=== PATIENT | female | born 1970 | race Caucasian/White ===

== ENCOUNTER → 2017-04-28 | Outpatient (CLI) | payer BC ==
[~2017-04-28] MED LIST: IBUP600T44 PO; LRT5 PO
--- NOTE | 2017-05-02 12:38 | MAMMOGRAPHY REPORT ---
BILATERAL DIGITAL SCREENING MAMMOGRAM TOMOSYNTHESIS WITH CAD: 04/28/2017 CLINICAL HISTORY: Routine screening. Patient has no complaints. TECHNIQUE: Breast tomosynthesis in addition to standard 2D mammography was performed. Current study was also evaluated with a Computer Aided Detection (CAD) system. COMPARISON: Comparison is made to exams dated: 06/11/2013 mammogram, 06/06/2012 mammogram, 09/22/2010 mammogram, 04/13/2010 mammogram, 09/21/2009 mammogram, and 01/26/2005 mammogram - [facility]. BREAST COMPOSITION: The tissue of both breasts is heterogeneously dense, which may obscure small mas ses. FINDINGS: No suspicious masses, calcifications, or areas of architectural distortion are noted in ei ther breast. There has been no significant interval change compared to prior exams. Scattered bilate ral benign-appearing calcifications are again noted. Numerous round/oval circumscribed masses are no josé miguel bilaterally, best seen on the tomosynthesis images, which are considered benign given the multipl icity and bilaterality and likely represent cysts and/or fibroadenomas. IMPRESSION: ACR BI-RADS CATEGORY 2: BENIGN There is no mammographic evidence of malignancy. A 1 year screening mammogram is recommended. The pa tient will receive written notification of the results. Approximately 10% of breast cancers are not detected with mammography. A negative mammographic report should not delay biopsy if a clinically suggestive mass is present. Alyse Thao M.D. /:04/28/2017 15:54:28 [employer] Manager: Maria E WHITE(Tiffany)(Trung)(NAN), [facility] letter sent: Normal 1/2 BI-RADS Code: ACR BI-RADS Category 2: Benign
== END | disposition home or self-care (01) ==
LOC: C.MAMM 15:11
PROVIDERS: ATTEND Obstetrics & Gynecology
DX: Z12.31 Encounter for screening mammogram for malignant neoplasm of breast (principal)

== ENCOUNTER 2017-06-09 16:54 | Emergency (ER) | payer OTHER, BC ==
[~2017-06-09] VITALS: Ht 160 cm; Wt 116.1 kg
[2017-06-09 16:58] VITALS: BP 117/74; PULSE 86; TEMP 37; O2SAT 98; Ht 160 cm; Wt 116.1 kg
[2017-06-09] MEDS ORDERED: IBUPROFEN 600 MG TAB PO STA (17:22)
[2017-06-09] MEDS ORDERED: XYLOCAINE 1%/SOD BICARB 20 ML VIAL INFIL ONE (17:30)
--- NOTE | 2017-06-09 17:45 | DIAGNOSTIC IMAGING REPORT ---
R FINGER(S) MIN 2 VIEWS ROUTINE CLINICAL HISTORY: 46 years-old Female presenting with RIGHT 2ND, EVAL FX. TECHNIQUE: Frontal, oblique, and lateral views of the right second finger were obtained. COMPARISON: None. FINDINGS: No acute fracture or malalignment. No significant degenerative change. No radiographic soft tissue abnormality. IMPRESSION: No acute osseous injury of the right second finger. Electronically signed by: Pawan Jarrell M.D. 06/09/2017 5:44 PM Dictated Date/Time: 06/09/2017 5:43 PM
--- NOTE | 2017-06-09 18:28 | EMERGENCY ROOM VISIT NOTE ---
ED Visit Note First contact with patient: 17:12 CHIEF COMPLAINT: Right second finger laceration at work this afternoon HISTORY OF PRESENT ILLNESS: Patient is a [id number] 46-year-old white female who presents emergency department for evaluation of a laceration to the tip of her right second finger. She accidentally pinched the tip of the finger in the hinge of a room dividing wall at work this afternoon. Bleeding was controlled with pressure. She was seen at [facility] where her tetanus was updated. They were not comfortable managing the wound. Patient notes a dull, throbbing 5/10 pain. Denies weakness or numbness of the finger. REVIEW OF SYSTEMS: Review of systems as per HPI. All other systems reviewed were negative. At least 6 systems reviewed. PMH: Electronic medical records are reviewed and summarized as above/below. See Problem List. Tetanus was administered at [facility] this afternoon. SOCIAL HISTORY: Patient lives at home with her and children. Nonsmoker. PHYSICAL EXAM: Vital Signs: Reviewed Nurse's notes. Patient has 2 lacerations on the finger pad of the right second finger. She has a 1.5 cm C-shaped flap laceration, then there is a second, 0.5 cm linear laceration through the flap. The edges gape apart with traction. There is no foreign material in the wound and it looks clean. There is no bleeding. No deep structures such as tendons or nerves are seen in the base of the wound. Flexion of the finger is full and strong at the DIP and the PIP. She does not have any pain over the DIP joint. There is very slight bruising to the nailbed, but no subungual hematoma. EMERGENCY DEPARTMENT COURSE: X-ray of the finger was obtained, and there was no evidence for acute fracture. Using sterile technique, saline and Betadine cleansing, and 1% lidocaine anesthesia, the lacerations were repaired with a total of 12, 5-0 nylon sutures. Wound care measures were discussed with the patient. She'll follow-up with occupational health for suture removal. There is no evidence for fracture. She does not have a subungual hematoma, nor nail injury or involvement. There is no fracture to indicate open fracture. No visible exam findings are indicative of nerve or tendinous injury. Medication reconciliation: I attest that I have personally reviewed the patient' s current medication list. Blood pressure screening : Patient was found to have normal blood pressure on screening and does not require follow-up. R FINGER(S) MIN 2 VIEWS ROUTINE CLINICAL HISTORY: 46 years-old Female presenting with RIGHT 2ND, EVAL FX. TECHNIQUE: Frontal, oblique, and lateral views of the right second finger were obtained. COMPARISON: None. FINDINGS: No acute fracture or malalignment. No significant degenerative change. No radiographic soft tissue abnormality. IMPRESSION: No acute osseous injury of the right second finger. Problem List Surgical Problems: (1) H/O section Status: Resolved Current/Historical Medications No Active Prescriptions or Reported Meds Allergies Coded Allergies: Scallop (Verified Allergy, Unknown, Unknown, 06/09/17) Vital Signs Date Time Temp Pulse Resp B/P (MAP) Pulse Ox O2 Delivery O2 Flow Rate FiO2 06/09/17 16:58 37.0 86 18 117/74 98 Room Air Medications Administered Medications (Trade) Dose Ordered Sig/Danica Route Start Time Stop Time Status Last Admin Dose Admin Lidocaine HCl (Buffered Lidocaine 1% Inj) 20 ml ONE ONCE INFIL 06/09/17 17:30 06/09/17 17:31 DC 06/09/17 17:41 20 ML Ibuprofen (Motrin Tab) 600 mg NOW STAT PO 06/09/17 17:22 06/09/17 17:24 DC 06/09/17 17:40 600 MG Departure Information Impression Primary Impression: Laceration of finger Additional Impression: Work related injury Prescriptions No Active Prescriptions or Reported Meds Referrals No Doctor, Assigned (PCP) Patient Instructions My [facility] Additional Instructions Keep wound clean and dry. Do not allow any crusting or dried blood to accumulate on sutures. If this occurs, use a 1:1 solution of hydrogen peroxide/ water on a Q-tip to clean the wound. Use an antibiotic ointment for 3-4 days, then let wound dry. Suture removal in 10-12 days. Return sooner for any signs of infection (increasing redness, swelling, drainage). Ice and elevate for swelling and pain. Ibuprofen 600 mg and Tylenol 1000 mg every 6 hrs for pain. Problem Qualifiers
== END 2017-06-09 19:01 | disposition home or self-care (01) ==
LOC: C.EDB 16:56 → C.EDD 19:01
DX: S61.210A Laceration without foreign body of right index finger without damage to nail, initial encounter (principal); W23.0XXA Caught, crushed, jammed, or pinched between moving objects, initial encounter; Y99.0 Civilian activity done for income or pay

== ENCOUNTER 2025-01-13 17:10 | Observation (INO) ==
--- NOTE | 2025-01-13 17:38 | CT Scan Report ---
Clinical History: Possible stroke. Technique: Axial computed tomography images were obtained of the brain from the vertex to the skull base without intravenous contrast. Comparison is made to the prior CT dated 10/08/2021 Findings: There is no sign of intracranial hemorrhage. There is normal freeman-white matter differentiation with no sign of acute or old infarction. No midline shift or other form of herniation is identified. There is no hydrocephalus. No obvious mass lesion is seen on this noncontrast examination. The visualized portions of the orbits and paranasal sinuses appear unremarkable. The mastoid air cells appear clear Impression: Unremarkable noncontrast CT of the brain These findings were discussed with Dr. Thomas at 5:37 PM on 01/13/2025 Electronically signed by Simon Gibson 01-13-2025 5:37 PM
--- NOTE | 2025-01-13 17:49 | XRay Report ---
INDICATION: Chest pain. TECHNIQUE: Frontal radiograph of the chest. COMPARISON: None. FINDINGS: Cardiomegaly. Mild pulmonary vascular congestion. No infiltrate, pleural effusion or pneumothorax. No acute osseous abnormality evident. IMPRESSION: Mild pulmonary vascular congestion. Electronically signed by Lobo Julian 01-13-2025 5:47 PM
[2025-01-13 17:50] LABS: iSTAT Creatinine 1.3 mg/dl (0.6-1.3); iSTAT Hemoglobin 14.6 g/dl (12.0-16.0); iSTAT Ionized Calcium 1.2 mmol/l (1.12-1.32)
[2025-01-13 17:52] LABS: Hemoglobin 14.5 g/dl (12.0-16.0); Mean Corpuscular Hemoglobin 30.5 pg (25.0-34.0); Mean Corpuscular Hgb Conc 33.7 g/dL (32.0-36.0); Mean Corpuscular Volume 90.5 fL (80.0-100.0); Mean Platelet Volume 10.9 fL (9.4-12.4); Platelet Count 230 K/uL (130-400); RDW Coefficient of Variation 13.8 % (11.5-14.5); RDW Standard Deviation 45.7 fL (36.4-46.3); Red Blood Count 4.75 M/uL (4.20-5.40); White Blood Count 7.27 K/ul (4.8-10.8)
[2025-01-13 17:59] LABS: INR 0.9 (0.9-1.1); Partial Thromboplastin Ratio 0.9; Partial Thromboplastin Time 25 Seconds (21-31); Prothrombin Time 9.8 Seconds (9.0-12.0)
[2025-01-13] MEDS: OPTIRAY 320 125ml IV ONE (18:03)
[2025-01-13 18:09] LABS: Alanine Aminotransferase 15 U/L (7-52); Albumin Globulin Ratio 1.4 (0.9-2); Albumin Level 4.3 gm/dl (3.4-5.0); Alkaline Phosphatase 78 U/L (34-104); Anion Gap 7 (3-11); Aspartate Aminotransferase 18 U/L (13-39); BUN Creatinine Ratio 18.2 (10-20); Bilirubin,Total 0.4 mg/dl (0.2-1.0); Blood Urea Nitrogen 22 mg/dl (6-23); Calcium 9.9 mg/dl (8.6-10.3); Carbon Dioxide 30 mmol/L (21-32); Chloride 103 mmol/L (98-107); Creatinine Clr Calc Pharmacy 65.3 ml/min; Glucose 103 mg/dl (70-99(Fasting)); Magnesium 2.1 mg/dl (1.7-2.4); Potassium 3.9 mmol/L (3.5-5.1); Sodium 140 mmol/L (136-145); Total Protein 7.3 gm/dl (6.0-8.3)
--- NOTE | 2025-01-13 18:13 | CT Scan Report ---
Technique: Axial computed tomography images were obtained of the brain after the administration of intravenous contrast according to the CT angiogram protocol Findings: There is mild plaque within the cavernous and supraclinoid segments of the internal carotid arteries bilaterally, without stenosis No definite stenosis or aneurysm is seen of the anterior, middle, or posterior cerebral artery circulations. The visualized vertebral arteries and the basilar artery appear unremarkable Impression: No definite stenosis or aneurysm of the intracranial arteries Electronically signed by Simon Gibson 01-13-2025 6:12 PM
--- NOTE | 2025-01-13 18:14 | CT Scan Report ---
Technique: Axial computed tomography images were obtained of the neck after the administration of intravenous contrast according to the CT angiogram protocol Findings: No stenosis is seen of the common carotid arteries bilaterally. The carotid bulbs appear normal. The remainder of the internal carotid arteries appear patent bilaterally. No stenosis of the external carotid arteries is seen The vertebral arteries are patent bilaterally with no significant stenosis seen. The visualized thoracic aorta appears unremarkable Impression: No definite stenosis of the neck arteries Electronically signed by Simon Gibson 01-13-2025 6:13 PM
--- NOTE | 2025-01-13 18:53 | History & Physical Report ---
Date of Service January 13, 2025 Assessment & Plan (1) Hyperlipidemia: (2) Morbid obesity: (3) Palpitations: (4) Visual changes: (5) TIA (transient ischemic attack): Plan Intermittent Chest Pain/Palpitations -Has had intermittent symptoms for several weeks, awoke overnight with chest pressure/palpitations -Reports some burning sensation in chest at times and some difficulty with deeper breaths -Denies chest pain at time of exam -EKG normal in ED. Repeat EKG as needed for chest pain -Troponin ordered, trend trop overnight -CXR showed possible pulmonary congestion, ordered echocardiogram for morning. BNP pending -Monitor on telemetry Possible Transient Ischemic Attack -History of obesity, hyperlipidemia. Family history unknown as patient is adopted -Temporary visual changes and dizziness lasting approximately 30 minutes, now resolved -Reported right sided facial droop noticed by patient's , not visible at time of admission -Will start aspirin, statin -Fasting lipid profile ordered for a.m. -Admit for observation on med/tele, neuro checks per protocol -BP has been normotensive since arrival -CTA head/neck and CT head without acute findings. MRI brain ordered Acute Kidney Injury -Cr 0.84 on 10/14/24 ([facility] ED), Cr today mildly elevated to 1.21 -Ordered IVF overnight, will recheck metabolic panel in a.m. Admit to: Med/tele, observation VTE Prophylaxis: Lovenox Diet: Heart Healthy Code Status: Full Code History of Present Illness Primary Care Provider: HEAVEN Francis Micheline Ames is a 54 year-old female with a medical history significant for morbid obesity, hyperlipidemia, impaired fasting glucose who presented today for concern of multiple symptoms concerning for TIA. She is accompanied by her . Patient recalls that she awoke overnight with some palpitations, racing heart rate, was able to fall back asleep and symptoms went away. This morning she was then walking her dog when she began to have blurry vision in both eyes, this lasted for a brief time (~30 minutes) and has since resolved- also endorsed some lightheadedness/"head felt funny" at that time but again resolved. After discussing these episodes with her this afternoon, he wanted patient to go to ED for evaluation. Patient states that over the past few weeks she has had random episodes of some chest pressure and/or palpitations, today also had some burning sensation in her chest but did not feel that it was reflux related. Family history is unknown as she was adopted. Has been told she has elevated cholesterol in the past, has not seen a PCP in several years. 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 notes that she also had an ED visit back in September 2024 for different symptoms (abnormal sense of smell?), however the workup was normal and she has not had return of that symptom. Patient denies recent viral illnesses, no nausea/vomiting/diarrhea. Denies orthopnea. ED Course: -CXR -CT head, CTA head/neck -EKG -CBC, BMP Allergies Allergy/AdvReac Type Severity Reaction Status Date / Time scallops Allergy Intermediate Vomiting Verified 01/13/25 17:39 Home Medications Medication Instructions Recorded Confirmed Type No Known Home Medications 01/13/25 01/13/25 History Past Med/Surg History Problem List (Updated 01/13/25 @ 23:03 by Mayr Briscoe, DO) TIA (transient ischemic attack) Visual changes Palpitations History of removal of cyst Excision of 2 cm epidermoid cyst from the back. Dr. Young Urinary incontinence (Acute) Impaired fasting glucose (Acute) Hyperlipidemia (Acute) Obesity Metabolic syndrome Dietary counseling and surveillance Reactive airway disease Encounter for pre-operative examination Colon cancer screening Vitamin D deficiency Sebaceous cyst Epidermoid cyst Medical History Vitamin D deficiency Hyperlipidemia no meds Surgical History H/O colonoscopy (2019) History of hammertoe correction right History of needle biopsy left breast, benign History of dilatation and curettage History of section x1 History of lingual frenulectomy History of wisdom tooth extraction Family History Mother Breast cancer Other Family history not obtainable due to adoption Denies family history of Ovarian cancer Prostate cancer Myocardial infarction Colorectal cancer Social History Smoking Status: Never smoker Second Hand Exposure: No; Do You Dip or Chew Tobacco: No; Tobacco Cessation Education Requested by Patient: No Hx Alcohol Use: Yes Alcohol type: wine Alcohol Intake Frequency: 2-3 x/Week Hx Substance Use: No Preferred Language: Kyrgyz Communication Ability: Effective Visual Impairment: No Limitations Hearing Ability: Normal [employer] Supervisor Required: No Beliefs That Will Affect Care: None marital status: Current Living Situation: Spouse Current Living Situation Comment: Lives with and son current occupational status: employed current occupation: coordinator on-line education @ [employer] How many Children do You have: 2 Other Information That Helps Us Care for You: No Feels Safe at Home: Yes Safety Concerns: Feels Safe At This Time Childhood Exposure to Second-Hand Smoke: No Diet: regular Diet Comment: restricted calories caffeine: No during the past year weight has: remained stable Dental Care, Regularly: Yes Physical Activity Frequency: 5-6 Times per Week Seatbelt Use: always Sunscreen Use: Yes Assistive Devices: Glasses Review of Systems Review of Systems: As per above Physical Exam Constitutional: WD/WN, vitals as above Eyes: PERRL, EOM intact bilaterally and reactive pupils; no conjunctival abnormality ENMT: Ears: no external ear abnormality Respiratory: normal respiratory effort, lungs clear to auscultation Cardiovascular: Rate/Rhythm: regular rate and regular rhythm +1 nonpitting edema of bilateral lower e xtremities Gastrointestinal (Abdomen): Inspection/Auscultation: abdomen normal to inspec tion; abdomen not distended Percussion/Palpation: abdomen soft; abdomen nontender and no guarding Musculoskeletal: Moves all limbs independently Skin: no rashes, warm and dry Neurologic: normal touch/pain/proprioception, CN's II-XI intact bilaterally and moves all extremities; no focal motor deficits Psychiatric: A+Ox3, euthymic affect Results & Data Results & Data Vital Signs (Past 12 Hours) Vital Signs Temp Pulse Resp BP Pulse Ox O2 Del Method 01/13/25 17:43 85 20 97 Room Air 01/13/25 17:36 76 21 98 Room Air 01/13/25 17:33 77 01/13/25 17:32 124/92 01/13/25 17:11 36.6 C 89 18 127/86 97 Diagnostic Findings Chest X-Ray 01/13/25 17:22 INDICATION: Chest pain. TECHNIQUE: Frontal radiograph of the chest. COMPARISON: None. FINDINGS: Cardiomegaly. Mild pulmonary vascular congestion. No infiltrate, pleural effusion or pneumothorax. No acute osseous abnormality evident. IMPRESSION: Mild pulmonary vascular congestion. Electronically signed by Lobo Julian 01-13-2025 5:[address] 01/13/25 17:22 Clinical History: Possible stroke. Technique: Axial computed tomography images were obtained of the brain from the vertex to the skull base without intravenous contrast. Comparison is made to the prior CT dated 10/08/2021 Findings: There is no sign of intracranial hemorrhage. There is normal freeman-white matter differentiation with no sign of acute or old infarction. No midline shift or other form of herniation is identified. There is no hydrocephalus. No obvious mass lesion is seen on this noncontrast examination. The visualized portions of the orbits and paranasal sinuses appear unremarkable. The mastoid air cells appear clear Impression: Unremarkable noncontrast CT of the brain These findings were discussed with Dr. Thomas at 5:37 PM on 01/13/2025 Electronically signed by Simon Gibson 01-13-2025 5:37 PM Head CTA 01/13/25 17:35 Technique: Axial computed tomography images were obtained of the brain after the administration of intravenous contrast according to the CT angiogram protocol Findings: There is mild plaque within the cavernous and supraclinoid segments of the internal carotid arteries bilaterally, without stenosis No definite stenosis or aneurysm is seen of the anterior, middle, or posterior cerebral artery circulations. The visualized vertebral arteries and the basilar artery appear unremarkable Impression: No definite stenosis or aneurysm of the intracranial arteries Electronically signed by Simon Gibson 01-13-2025 6:12 PM Neck CTA 01/13/25 17:35 Technique: Axial computed tomography images were obtained of the neck after the administration of intravenous contrast according to the CT angiogram protocol Findings: No stenosis is seen of the common carotid arteries bilaterally. The carotid bulbs appear normal. The remainder of the internal carotid arteries appear patent bilaterally. No stenosis of the external carotid arteries is seen The vertebral arteries are patent bilaterally with no significant stenosis seen. The visualized thoracic aorta appears unremarkable Impression: No definite stenosis of the neck arteries Electronically signed by Simon Gibson 01-13-2025 6:13 PM Supervising Physician Co-Signing Physician Notes I personally saw and examined the patient. I independently reviewed the labs, EKG, imaging, problem list, medication list, past medical history and family history. I verified all amador points and agree with resident physician Dr Mary Briscoe, DO with the following exceptions and/or additions: 54-year-old female presents to the ER with intermittent chest pressure/palpitations and concern for left-sided facial droop. Symptoms started earlier today. Increased stress recently looking after her mother. O/E HS RRR, no murmurs, Chest CTAB, Abdo SNT, mild left eye facial droop, otherwise CN2->12 normal, no pronator drift, no upper or lower extremity weakness. A/P Possible TIA - stroke workup ordered as above. Ongoing mild left eyebrow droppin g which is reportedly new for patient. Chest pressure / palpitations - monitor on telemetry, TTE, troponin negative with symptoms starting this morning therefore no need to repeat Suspect symptoms most likely stress related although this is the diagnosis of exclusion Resident Activity Tracking Resident Involvement: Resident Care Provided Care Provided: Adult Hospital Medicine
[2025-01-13] MEDS ORDERED: ALUMINUM/MAGNESIUM SUSP 30 ML UDC PO PRN (21:01)
[2025-01-13] MEDS ORDERED: MELATONIN 3 MG TAB PO PRN (21:01)
[2025-01-13] MEDS ORDERED: POLYETHYLENE (MIRALAX) 17 GM PACK PO PRN (21:01)
[2025-01-13] MEDS ORDERED: ACETAMINOPHEN 325 MG TAB PO PRN (21:01)
[2025-01-13] MEDS ORDERED: ONDANSETRON INJ 2 MG/ML 2 ML VIAL IV PRN (21:01)
[2025-01-13 21:04] LABS: Troponin I High Sensitivity < 2.3 pg/ml (0-14)
[2025-01-13 21:36] VITALS: RESP 18
[2025-01-13] MEDS: LACTATED RINGER'S 1,000 ML IV SCH (21:48)
--- NOTE | 2025-01-13 22:11 | Emergency Department Note ---
Impression & Plan Visual changes, Palpitations ED Provider Note CHIEF COMPLAINT: Chest pain, visual changes HISTORY OF PRESENT ILLNESS: This patient is a 54-year-old female who presents emergency department with complaints of left-sided chest "pounding" that began in the middle of the night. Patient tried to ignore those symptoms woke up this morning feeling somewhat improved. She took her dog for a walk and noticed that she could not see long distances. She felt perhaps there was something in her eye. Patient became more anxious about the symptoms throughout the day and came to the emergency department for evaluation. She denies any previous history of atrial fibrillation. She has not had a stroke in the past. She denies any recent head injuries, fevers and recent illnesses. REVIEW OF SYSTEMS: A review of systems was performed with positives and pertinent negatives listed in the history of present illness. 10 systems were reviewed and are otherwise negative. ALLERGIES: see below MEDICATIONS: see below PMH: see below SOCIAL HISTORY: see below DDx: Stroke, intracranial hemorrhage, intracranial mass, arrhythmia, dehydration, metabolic abnormality among others. PHYSICAL EXAM: Vital signs reviewed. General: Well-appearing 54-year-old female, in no significant distress. HEENT: No scleral icterus, PERRLA, neck supple. moist mucous membranes. Slight appreciable horizontal nystagmus. Cardiovascular: Regular rate and rhythm, no extra sounds. Pulmonary: Clear to auscultation bilaterally, normal work of breathing. Abdomen: Soft, nontender, nondistended, positive bowel sounds. Musculoskeletal: Atraumatic, no peripheral edema. Neurologic: Patient awake alert and oriented x 3, speech is clear. Cranial nerves II through XII are grossly intact, intact [id number], negative pronator drift. Skin: Warm, dry, no rash EMERGENCY DEPARTMENT COURSE/MDM: This patient was evaluated and appeared to be in no significant distress. IV access was obtained and laboratory work was drawn. The patient was placed on the ekg monitor tech and noted to be in a normal sinus rhythm. EKG reveals no evidence of acute ischemic change or dysrhythmia. Chest x-ray is clear. Laboratory work is fairly reassuring. Troponin is negative. Patient has remained in a sinus rhythm. CT imaging of the head reveals no evidence of acute intracranial process. Patient is felt to be stable for discharge. She will follow-up with her PCP this week for reevaluation and further management. She will return to the ED for worsening of symptoms or any medical concerns. MONITORING: An order for cardiac monitoring was placed and the patient is noted to be in a normal sinus rhythm at 77 beats per minute. RADIOLOGY: chest x-ray to my interpretation reveals no evidence of focal lung consolidation or failure. EKG: To my interpretation reveals a normal sinus rhythm at 79 bpm. QTc of 428. No PVC, no PAC. Normal ST segments. DISPOSITION: Home Past Med/Surg History Problem List (Updated 01/16/25 @ 02:15 by Nola Thomas MD) TIA (transient ischemic attack) Visual changes (Acute) Palpitations (Acute) History of removal of cyst Excision of 2 cm epidermoid cyst from the back. Dr. Young Urinary incontinence (Acute) Impaired fasting glucose (Acute) Hyperlipidemia (Acute) Obesity Metabolic syndrome Dietary counseling and surveillance Reactive airway disease Encounter for pre-operative examination Colon cancer screening Vitamin D deficiency Sebaceous cyst Epidermoid cyst Medical History Vitamin D deficiency Hyperlipidemia no meds Surgical History H/O colonoscopy (2019) History of hammertoe correction right History of needle biopsy left breast, benign History of dilatation and curettage History of section x1 History of lingual frenulectomy History of wisdom tooth extraction Family History Mother Breast cancer Other Family history not obtainable due to adoption Denies family history of Ovarian cancer Prostate cancer Myocardial infarction Colorectal cancer Social History Smoking Status: Never smoker Second Hand Exposure: No; Do You Dip or Chew Tobacco: No; Hx Alcohol Use: Yes Alcohol type: wine Alcohol Intake Frequency: 2-3 x/Week Hx Substance Use: No Preferred Language: Romansh Communication Ability: Effective Visual Impairment: No Limitations Hearing Ability: Normal Branch Store Manager Required: No Beliefs That Will Affect Care: None marital status: Current Living Situation: Spouse Current Living Situation Comment: Lives with and son current occupational status: employed current occupation: coordinator on-line education @ [employer] How many Children do You have: 2 Feels Safe at Home: Yes Childhood Exposure to Second-Hand Smoke: No Diet: regular Diet Comment: restricted calories caffeine: No during the past year weight has: remained stable Dental Care, Regularly: Yes Physical Activity Frequency: 5-6 Times per Week Seatbelt Use: always Sunscreen Use: Yes Assistive Devices: None Allergies Allergies Allergy/AdvReac Type Severity Reaction Status Date / Time scallops Allergy Intermediate Vomiting Verified 01/13/25 17:39 Home Meds Home Medications Medication Instructions Recorded Confirmed No Known Home Medications 01/13/25 01/13/25 Results & Data (ED) Vital Signs Vital Signs - 24 hr 01/13/25 17:11 01/13/25 17:32 01/13/25 17:33 Temperature 36.6 C Temperature Source Temporal Artery Scan Pulse Rate 89 77 Pulse Rate [Right Brachial] Pulse Rate from SpO2 Sensor Pulse Rhythm Pulse Rhythm [Right Brachial] Pulse Strength [Right Brachial] Respiratory Rate 18 Respiratory Effort / Characteristics Respiratory Depth Respiratory Pattern Blood Pressure 127/86 124/92 Blood Pressure [Right Arm] Blood Pressure Mean 99 104 Blood Pressure Mean [Right Arm] Blood Pressure Position [Right Arm] Pulse Oximetry 97 Oxygen Delivery Method Sepsis Recent Fever Within 48 Hours No Sepsis New/Unexplained Change in Mental Status N/A Sepsis Action Taken by Nursing No Action Required 01/13/25 17:36 01/13/25 17:43 01/13/25 18:09 Temperature Temperature Source Pulse Rate 76 85 76 Pulse Rate [Right Brachial] Pulse Rate from SpO2 Sensor 76 76 Pulse Rhythm Regular Pulse Rhythm [Right Brachial] Pulse Strength [Right Brachial] Respiratory Rate 21 20 18 Respiratory Effort / Characteristics Respiratory Depth Respiratory Pattern Blood Pressure Blood Pressure [Right Arm] Blood Pressure Mean Blood Pressure Mean [Right Arm] Blood Pressure Position [Right Arm] Pulse Oximetry 98 97 96 Oxygen Delivery Method Room Air Room Air Room Air Sepsis Recent Fever Within 48 Hours Sepsis New/Unexplained Change in Mental Status Sepsis Action Taken by Nursing 01/13/25 18:24 01/13/25 18:30 01/13/25 18:36 Temperature Temperature Source Pulse Rate 85 83 Pulse Rate [Right Brachial] Pulse Rate from SpO2 Sensor 85 84 Pulse Rhythm Pulse Rhythm [Right Brachial] Pulse Strength [Right Brachial] Respiratory Rate 22 20 Respiratory Effort / Characteristics Respiratory Depth Respiratory Pattern Blood Pressure 96/68 L 96/68 L Blood Pressure [Right Arm] Blood Pressure Mean 80 77 Blood Pressure Mean [Right Arm] Blood Pressure Position [Right Arm] Pulse Oximetry 97 97 Oxygen Delivery Method Room Air Room Air Sepsis Recent Fever Within 48 Hours Sepsis New/Unexplained Change in Mental Status Sepsis Action Taken by Nursing 01/13/25 19:00 01/13/25 19:11 Temperature Temperature Source Pulse Rate 83 Pulse Rate [Right Brachial] 84 Pulse Rate from SpO2 Sensor 84 Pulse Rhythm Pulse Rhythm [Right Brachial] Regular Pulse Strength [Right Brachial] Normal Respiratory Rate 18 20 Respiratory Effort / Characteristics Non-Labored Respiratory Depth Normal Respiratory Pattern Regular Blood Pressure 111/73 Blood Pressure [Right Arm] 92/69 L Blood Pressure Mean 88 Blood Pressure Mean [Right Arm] 76 Blood Pressure Position [Right Arm] Lying Pulse Oximetry 97 96 Oxygen Delivery Method Room Air Room Air Sepsis Recent Fever Within 48 Hours Sepsis New/Unexplained Change in Mental Status Sepsis Action Taken by [facility] Medications Current Medication List: was personally reviewed by me Laboratory Data Attestation: I reviewed the patient's lab results. 01/13/25 17:33 01/14/25 06:14 Lab Results 01/13/25 01/13/25 01/13/25 Range/Units 17:33 17:34 17:37 WBC 7.27 (4.8-10.8) K/ul RBC 4.75 (4.20-5.40) M/uL Hgb 14.5 (12.0-16.0) g/dl POC Hgb 14.6 (12.0-16.0) g/dl Hct 43.0 (37.0-47.0) % POC Hct 43 (37-47) % MCV 90.5 (80.0-100.0) fL MCH 30.5 (25.0-34.0) pg MCHC 33.7 (32.0-36.0) g/dL RDW Std Deviation 45.7 (36.4-46.3) fL RDW Coeff of Kalie 13.8 (11.5-14.5) % Plt Count 230 (130-400) K/uL MPV 10.9 (9.4-12.4) fL PT 9.8 (9.0-12.0) Seconds INR 0.9 (0.9-1.1) APTT 25 (21-31) Seconds PTT Ratio 0.9 POC Sodium 139 (135-144) mmol/L Sodium 140 (136-145) mmol/L POC Potassium 4.0 (3.3-5.0) mmol/L Potassium 3.9 (3.5-5.1) mmol/L POC Chloride 102 (101-112) mmol/L Chloride 103 (98-107) mmol/L Carbon Dioxide 30 (21-32) mmol/L POC Total CO2 25 (24-31) mmol/L Anion Gap 7 (3-11) POC Anion Gap 17.0 (16-25) mmol/L POC BUN 22 H (7-18) mg/dl BUN 22 (6-23) mg/dl Creatinine 1.21 H (0.6-1.2) mg/dl POC Creatinine 1.3 (0.6-1.3) mg/dl Est Cr Clr Drug Dosing 65.3 ml/min eGFR 52.93 BUN/Creatinine Ratio 18.2 (10-20) Glucose 103 H (70-99(Fasting)) mg/dl POC Glucose (other) 104 H (70-99) mg/dl Calcium 9.9 (8.6-10.3) mg/dl POC Ioniz Calcium [place] 1.20 (1.12-1.32) mmol/l Magnesium 2.1 (1.7-2.4) mg/dl Total Bilirubin 0.4 (0.2-1.0) mg/dl AST 18 (13-39) U/L ALT 15 (7-52) U/L Alkaline Phosphatase 78 (34-104) U/L Troponin I High Sens < 2.3 (0-14) pg/ml B-Natriuretic Peptide 37 (0-100) pg/ml Total Protein 7.3 (6.0-8.3) gm/dl Albumin 4.3 (3.4-5.0) gm/dl Globulin 3.0 (2.5-4.0) gm/dl Albumin/Globulin Ratio 1.4 (0.9-2) Administered Medications Discontinued Medications Aspirin (Aspirin 81 Mg Ectab) 81 mg PO [facility] Stop: 02/13/25 08:59 Last Admin: 01/14/25 09:15 Dose: 81 mg Documented By: DAMASO Enoxaparin Sodium (Enoxaparin Inj 40 Mg/0.4 Ml Syr) 40 mg SQ [facility] [place]: 02/13/25 08:59 Last Admin: 01/14/25 09:16 Dose: 40 mg Documented By: DAMASO Gadobutrol (Gadobutrol 65ml Vial) 12 ml IV ONCE ONE Stop: 01/14/25 00:50 Last Admin: 01/14/25 00:50 Dose: 12 ml Documented By: TED Lactated Ringer's (Lr) 1,000 mls @ 125 mls/hr IV .Q8H [facility] Stop: 01/14/25 13:00 Last Infusion: 01/14/25 14:12 Dose: Infused Documented By: Admin: 01/14/25 06:12 Dose: 125 mls/hr Documented By: Infusion: 01/14/25 05:48 Dose: Infused Documented By: Admin: 01/13/25 21:48 Dose: 125 mls/hr Documented By: ANN Ioversol (Optiray 320 125ml) 115 ml IV ONCE ONE Stop: 01/13/25 18:03 Last Admin: 01/13/25 18:03 Dose: 115 ml Documented By: JAMEE Rosuvastatin Calcium (Rosuvastatin Calcium 10 Mg Tab) 10 mg PO QAM [facility] Stop: 02/13/25 08:59 Last Admin: 01/14/25 09:15 Dose: 10 mg Documented By: DAMASO Imaging Data Radiologist's Impression: Chest X-Ray 01/13/25 17:22 INDICATION: Chest pain. TECHNIQUE: Frontal radiograph of the chest. COMPARISON: None. FINDINGS: Cardiomegaly. Mild pulmonary vascular congestion. No infiltrate, pleural effusion or pneumothorax. No acute osseous abnormality evident. IMPRESSION: Mild pulmonary vascular congestion. Electronically signed by Lobo Julian 01-13-2025 5:[address] 01/13/25 17:22 Clinical History: Possible stroke. Technique: Axial computed tomography images were obtained of the brain from the vertex to the skull base without intravenous contrast. Comparison is made to the prior CT dated 10/08/2021 Findings: There is no sign of intracranial hemorrhage. There is normal freeman-white matter differentiation with no sign of acute or old infarction. No midline shift or other form of herniation is identified. There is no hydrocephalus. No obvious mass lesion is seen on this noncontrast examination. The visualized portions of the orbits and paranasal sinuses appear unremarkable. The mastoid air cells appear clear Impression: Unremarkable noncontrast CT of the brain These findings were discussed with Dr. Thomas at 5:37 PM on 01/13/2025 Electronically signed by Simon Gibson 01-13-2025 5:37 PM Head CTA 01/13/25 17:35 Technique: Axial computed tomography images were obtained of the brain after the administration of intravenous contrast according to the CT angiogram protocol Findings: There is mild plaque within the cavernous and supraclinoid segments of the internal carotid arteries bilaterally, without stenosis No definite stenosis or aneurysm is seen of the anterior, middle, or posterior cerebral artery circulations. The visualized vertebral arteries and the basilar artery appear unremarkable Impression: No definite stenosis or aneurysm of the intracranial arteries Electronically signed by Simon Gibson 01-13-2025 6:12 PM Neck CTA 01/13/25 17:35 Technique: Axial computed tomography images were obtained of the neck after the administration of intravenous contrast according to the CT angiogram protocol Findings: No stenosis is seen of the common carotid arteries bilaterally. The carotid bulbs appear normal. The remainder of the internal carotid arteries appear patent bilaterally. No stenosis of the external carotid arteries is seen The vertebral arteries are patent bilaterally with no significant stenosis seen. The visualized thoracic aorta appears unremarkable Impression: No definite stenosis of the neck arteries Electronically signed by Simon Gibson 01-13-2025 6:13 PM Discharge Plan Visit Data Chief Complaint: Stroke Alert Stated Complaint: FEELS OFF, BLURRY VISION, SOB, TIGHTNESS ED Provider: Nola Thomas Discharge Problem: Visual changes, Palpitations Patient Disposition: Admitted As Inpatient Condition: Good Discharge Instructions Interventions: ED Discharge Assessment Last Done: 01/13/25 20:42
--- NOTE | 2025-01-14 00:47 | Billing Data ---
Date of Service January 13, 2025 Coding Level of Care Code 83570 INT INP/OBS CARE
[2025-01-14] MEDS: GADOBUTROL 65ML VIAL IV ONE (00:50)
--- NOTE | 2025-01-14 01:59 | Magnetic Resonance Report ---
EXAM: MR brain wo/w con CLINICAL HISTORY: TIA symptoms TECHNIQUE: MRI of the brain was performed with and without intravenous contrast administration Sequences obtained include pre-contrast and post-contrast T1-weighted, T2-weighted, FLAIR (Fluid-Attenuated Inversion Recovery), DWI (Diffusion-Weighted Imaging), and ADC (Apparent Diffusion Coefficient) sequences. COMPARISON: 01/13/2025 FINDINGS: Brain Parenchyma: No evidence of acute infarction or hemorrhage. Subtle periventricular hyperintense T2/FLAIR WI sheets with few bilateral parietal tiny foci of similar signal intensity No intracranial bleeding Post-Contrast Findings: No abnormal enhancement of the brain parenchyma or meninges. Ventricles and Sulci: Prominent ventricular system Prominent sulci and cisternal spaces Brainstem and Cerebellum: Normal appearance of the brainstem and cerebellum without focal lesions or abnormal enhancement. Vessels: Intracranial vessels appear normal without evidence of vascular malformations or aneurysms. Skull and Calvarium: No evidence of skull vault lesions or abnormal marrow signal within the calvarium. IMPRESSION: No acute infarction or intracranial bleeding Mild microangiopathic ischemic and involutional brain changes No interval changes. Electronically signed by Bimal Cordero 01-14-2025 01:59 AM
[2025-01-14 07:28] LABS: Estimated Average Glucose 123 mg/dl; Hemoglobin A1C 5.9 % (4.5-5.6)
[2025-01-14 07:48] VITALS: TEMP 98.8
[2025-01-14 08:13] LABS: Albumin Globulin Ratio 1.7 (0.9-2); Albumin Level 3.8 gm/dl (3.4-5.0); Bilirubin,Total 0.5 mg/dl (0.2-1.0); Calcium 8.7 mg/dl (8.6-10.3); Chol HDL Ratio 3.2 (0-5); Globulin 2.2 gm/dl (2.5-4.0); Potassium 3.7 mmol/L (3.5-5.1)
[2025-01-14] MEDS: ASPIRIN 81 MG ECTAB PO SCH (09:15)
[2025-01-14] MEDS: ROSUVASTATIN CALCIUM 10 MG TAB PO SCH (09:15)
[2025-01-14] MEDS: ENOXAPARIN INJ 40 MG/0.4 ML SYR SQ SCH (09:16)
[2025-01-14 11:04] VITALS: BP 103/69; O2SAT 95
--- NOTE | 2025-01-14 13:09 | Electrocardiogram Report ---
Test Reason : Blood Pressure : */* mmHG Vent. Rate : 79 BPM Atrial Rate : 79 BPM P-R Int : 140 ms QRS Dur : 76 ms QT Int : 374 ms P-R-T Axes : 33 82 41 degrees QTcB Int : 428 ms Normal sinus rhythm Normal ECG No previous ECGs available Confirmed by Justus Hodges ([id number]) on 01/14/2025 1:08:54 PM Referred By: REFERRED SELF Confirmed By: Justus Hodges
--- NOTE | 2025-01-14 15:10 | XCELERA ---
[id number]
[2025-01-14 15:41] VITALS: PULSE 80
--- NOTE | 2025-01-14 16:04 | Discharge Summary ---
Discharge Summary Date of Service January 14, 2025 Principal Dx & Hospital Course #1 = Principal Diagnosis (1) Visual changes: (2) Palpitations: (3) Hyperlipidemia: (4) Morbid obesity: Plan This pt is a 54 yo female with a h/o obesity, HLD, Vit D deficiency, and prediabetes who presents for an episode of blurry vision and lightheadedness x 30 min and a separate incident of heart palpitations. She was admitted for a stroke workup. #Intermittent Chest Pain/Palpitations-Has had intermittent symptoms for several weeks, awoke overnight with chest pressure/palpitations, resolved on own after 30 min-Reports some burning sensation in chest at times and some difficulty with deeper breaths. Atypical CP. ECG normal, tele here normal, ECHO normal. No further episodes while hospitalized. Troponin neg x 1. CXR showed possible pulmonary congestion, BNP normal and do not supsect CHF. TSH pending at time of discharge. MRI brain negative for CVA, lipids good, A1C prediabetes. CTA head and neck negative. Do not suspect TIA or stroke. COuld be related to dehydration vs cardiac arrhythmia. -dc to home and arrange 30 day cardiac event monitor -no need for ASA, statin #Acute Kidney Injury-Cr 0.84 on 10/14/24 ([facility] ED), Cr on admission here mildly elevated to 1.21. was given IVFs and had improvement ciro to baseline #Obesity BMI 44.5/Prediabetes -needs weight loss, low carb diet DVT proph-Lovenox Dispo-dc to home Notes For Next Care Provider 30 day cardiac event monitor being arranged Medication Changes From Visit none Admission HPI Per Admitting Provider Micheline Ames is a 54 year-old female with a medical history significant for morbid obesity, hyperlipidemia, impaired fasting glucose who presented today for concern of multiple symptoms concerning for TIA. She is accompanied by her . Patient recalls that she awoke overnight with some palpitations, racing heart rate, was able to fall back asleep and symptoms went away. This morning she was then walking her dog when she began to have blurry vision in both eyes, this lasted for a brief time (~30 minutes) and has since resolved- also endorsed some lightheadedness/"head felt funny" at that time but again resolved. After discussing these episodes with her this afternoon, he wanted patient to go to ED for evaluation. Patient states that over the past few weeks she has had random episodes of some chest pressure and/or palpitations, today also had some burning sensation in her chest but did not feel that it was reflux related. Family history is unknown as she was adopted. Has been told she has elevated cholesterol in the past, has not seen a PCP in several years. 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 notes that she also had an ED visit back in September 2024 for different symptoms (abnormal sense of smell?), however the workup was normal and she has not had return of that symptom. Patient denies recent viral illnesses, no nausea/vomiting/diarrhea. Denies orthopnea. ED Course: -CXR -CT head, CTA head/neck -EKG -CBC, BMP Discharge Exam Constitutional WD/WN, vitals as above Eyes PERRL, conjunctivae normal, anicteric sclerae ENMT external ear and nose normal, oropharynx normal Neck trachea midline, no thyromegaly Respiratory normal respiratory effort, lungs clear to auscultation Cardiovascular RRR, no murmur, no edema Chest (Breasts) Chest: normal inspection of chest Musculoskeletal Extremities: extremities normal to inspection; no cyanosis and no clubbing Skin no rashes, warm and dry Neurologic PERRL, EOMI, accommodation nl, no face palsy, no dysarthria moves all extremities and awake; no focal motor deficits Psychiatric A+Ox3, euthymic affect Lymphatic no lymphedema Discharge Plan Discharge Items Patient Disposition: Home - Self-Care Reason For Visit: TIA Discharge Diagnosis: Blurry vision Heart palpitations Condition on Discharge: Good Activity: Resume your previous activity Non-emergency contact: Primary Care Provider Call non-emergency contact if: you have any medication questions and your symptoms worsen Follow-up/Referrals: Odalis Levy CRNP [Primary Care Provider] - (Please follow up within 1-2 weeks) Diet: Heart Healthy Addtl Attending Provider Instructions: You were admitted with some heart palpitations and blurry vision. Your workup for stroke and heart attack was negative. A heart monitor will be arranged for you to look for arrhythmias of the heart that could cause your symptoms. A thyroid blood test was pending at the time of discharge. It is important for you to follow up routinely with your PCP. Pending Studies at Discharge: Yes (TSH) Stand-Alone Forms: My [facility] Medications and DC Order Prescriptions: No Action No Known Home Medications Discharge Orders: Discharge Order (Routine); Ordered 01/14/25 Ordered By: Halle Contreras/Other Patient Handouts: What Is a TIA?, TIA Dc Admission Data Admit Date/Time: 01/13/25 19:51 Attending Provider: Halle Pardo Admit Provider: Mary Briscoe Primary Care Provider: Odalis Levy Other Providers: Halle Pardo Other Interventions: Discharge Summary Assessment (RN) Last Done: 01/14/25 15:39 Hospital Stay Data Consultations 01/13/25 18:41 ED Decision to Admit Stat Diagnostic Imagining Performed 01/13/25 17:22 CT head/brain wo con Stat 01/13/25 17:35 CT angio head w con Stat CT angio neck with con Stat 01/14/25 00:09 MR brain wo/w con Routine ECHO Pending Results Patient Have Any Pending Studies at Discharge: Yes (TSH) Discharge Instructions Given to Patient (Per Discharging Provider) You were admitted with some heart palpitations and blurry vision. Your workup for stroke and heart attack was negative. A heart monitor will be arranged for you to look for arrhythmias of the heart that could cause your symptoms. A thyroid blood test was pending at the time of discharge. It is important for you to follow up routinely with your PCP. Total Time Total Time Spent Total Time Spent (In Minutes): 35 min Total Time Includes: Examination of the Patient, Discharge Planning and Medication Reconciliation Coding Level of Care Code 25560 INP/OBS DISCH >30 MIN Diagnoses Visual changes H53.9 Palpitations R00.2 Hyperlipidemia E78.5 Morbid obesity E66.01
== END 2025-01-14 16:25 | disposition home or self-care (01) ==
LOC: 2N 17:10 → ED 17:10 → SUATTDRO 19:51 → 2N 20:42